=== PATIENT | male | born 2000 | race African-American/Black ===

== ENCOUNTER → 2022-11-27 | Outpatient (CLI) | payer OTHER | LOC: M PLAIMG 13:14 | PROVIDERS: ATTEND Physician Assistant | DX: M54.14 Radiculopathy, thoracic region (principal) ==

== ENCOUNTER 2024-03-10 07:07 | Emergency (ER) | payer OTHER ==
[~2024-03-10] VITALS: Ht 165.1 cm; Wt 68.1 kg
[2024-03-10] MEDS: ONDANSETRON 4MG 2ML VIAL IV ONE (07:46)
[2024-03-10 08:04] LABS: BASO % 0.3 % (0.0-1.0); EOS # 0.2 10^3/uL (0.0-0.5); EOS % 2.8 % (0.0-3.0); HEMATOCRIT 42.1 % (42.0-52.0); HEMOGLOBIN 14.1 g/dl (13.5-17.5); LYMPH % 32.3 % (24.0-44.0); MEAN CORPUSCULAR HEMOGLOBIN 27.2 pg (27.0-33.0); MEAN CORPUSCULAR HGB CONC 33.5 g/dl (32.0-36.5); MEAN CORPUSCULAR VOLUME 81.1 fl (80.0-96.0); MONO # 0.4 10^3/uL (0.0-0.8); MONO % 7.2 % (2.0-8.0); NEUTROPHILS # 3.5 10^3/uL (1.5-8.5); NEUTROPHILS % 57.2 % (36.0-66.0); PLATELET COUNT, AUTOMATED 181 10^3/uL (150-450); RED BLOOD COUNT 5.19 10^6/uL (4.30-6.10); WHITE BLOOD COUNT 6.1 10^3/uL (4.0-10.0)
[2024-03-10 08:31] LABS: LIPASE 22 U/L (12-53)
[2024-03-10 08:34] LABS: ALKALINE PHOSPHATASE 89 U/L (46-116); ALT/SGPT 22 U/L (7.0-40); AST/SGOT < 8 U/L (<34); BILIRUBIN,DIRECT 0.1 MG/DL (<0.4); BILIRUBIN,TOTAL 0.4 MG/DL (0.3-1.2); TOTAL PROTEIN 6.9 G/DL (5.7-8.2)
[2024-03-10] MEDS: NS 1,000 ML IV ONE (09:02)
[2024-03-10] MEDS ORDERED: ONDA-282 PO (10:10)
[2024-03-10 10:18] VITALS: BP 124/70; TEMP 96.8; O2SAT 98
== END 2024-03-10 10:27 | disposition home or self-care (01) ==
LOC: M ED 07:07
DX: R11.2 Nausea with vomiting, unspecified (principal); R19.7 Diarrhea, unspecified
CPT/HCPCS: 80047; 80076; 83690; 85025; 96361; 96374; 99284; J2405